=== PATIENT | female | born 1995 | race Caucasian/White ===

== ENCOUNTER 2020-10-17 15:30 | Emergency (ER) | payer OTHER | END 2020-10-17 16:35 | disposition home or self-care (01) | LOC: JVIRT 15:30 | DX: Z11.59 Encounter for screening for other viral diseases (principal) | CPT/HCPCS: C9803; G2251-GT; Q3014-GT; U0003 ==

== ENCOUNTER 2021-10-06 22:28 | Emergency (ER) | payer OTHER ==
[2021-10-06 22:44] VITALS: BMI 22.9
[2021-10-06] MEDS ORDERED: ACETAMINOPHEN 1000 MG/100 ML VIAL IVPB ONE (23:24)
[2021-10-06] MEDS ORDERED: ONDANSETRON 4 MG/2 ML VIAL IVPUSH ONE (23:24)
[2021-10-06] MEDS ORDERED: SODIUM CHLORIDE 0.9% 500 ML INFUS.BAG IV ONE (23:24)
[2021-10-06] MEDS ORDERED: FAMOTIDINE 20 MG/50 ML IVPB 20 MG/50 ML MG IVPB ONE ×2 (23:24→23:48)
[2021-10-06 23:33] LABS: BASO % 0.3 % (0-2.0); EOS % 0.5 % (0-4.5); HEMATOCRIT 41.6 % (32.4-45.2); HEMOGLOBIN 13.7 GM/dL (10.7-15.3); LYMPH % 20.9 % (8-40); MCH 27.3 pg (25.7-33.7); MCHC 33.1 g/dl (32.0-36.0); MEAN CELL VOLUME 82.5 fl (80-96); MEAN PLT VOLUME 9.1 fl (7.5-11.1); MONO % 4.9 % (3.8-10.2); NEUT % 73.4 % (42.8-82.8); PLATELET COUNT 330 10^3/uL (134-434); RBC 5.04 M/mm3 (3.60-5.2); RDW 13.6 % (11.6-15.6); WHITE BLOOD COUNT 15.8 K/mm3 (4.0-10.0)
[2021-10-06 23:41] LABS: INR 1.03 (0.83-1.09)
[2021-10-06 23:44] LABS: ACTIVATED PTT 29.3 SECONDS (25.2-36.5)
[2021-10-06] MEDS ORDERED: ACETAMINOPHEN INJECTION 100 ML IVPB ONE (23:48)
[2021-10-06] MEDS ORDERED: ONDANSETRON 4 MG/2 ML VIAL ONE (23:48)
[2021-10-07 00:28] LABS: CALCIUM 9.2 mg/dL (8.5-10.1)
[2021-10-07 00:29] LABS: BLOOD UREA NITROGEN 9.6 mg/dL (7-18)
[2021-10-07 00:32] LABS: CREATININE 0.6 mg/dL (0.55-1.3)
[2021-10-07 00:33] LABS: TOT PROT 8.5 g/dl (6.4-8.2)
[2021-10-07 00:34] LABS: BILIRUBIN,TOTAL 0.1 mg/dL (0.2-1)
[2021-10-07 01:44] LABS: PH,URINE 5.5 (5.0-8.0); URINE APPEARANCE CLEAR; URINE BILIRUBIN NEGATIVE (NEGATIVE); URINE COLOR YELLOW; URINE GLUCOSE (UA) NEGATIVE (NEGATIVE); URINE KETONE NEGATIVE (NEGATIVE); URINE LEUK ESTERASE NEGATIVE (NEGATIVE); URINE NITRITE NEGATIVE (NEGATIVE); URINE PROTEIN NEGATIVE (NEGATIVE); URINE UROBILINOGEN 0.2 mg/dL (0.2-1.0)
[2021-10-07 03:16] VITALS: BP 125/44; PULSE 86; TEMP 98.7
== END 2021-10-07 03:16 | disposition home or self-care (01) ==
LOC: JER 22:28
DX: R10.31 Right lower quadrant pain (principal)
CPT/HCPCS: 36415; 74177-TC; 80053; 81003; 83690; 84703; 85025; 85610; 85730; 86850; 86900; 86901; 87086; 99285-25; C9803; J0131; Q9967; U0003; U0005